=== PATIENT | male | born 1960 | race Caucasian/White ===

== ENCOUNTER → 2023-02-04 18:17 | Outpatient (CLI) | payer OTHER, SELFPAY ==
--- NOTE | 2023-02-04 | DI.MRI.S_ITS ---
PROCEDURE: MR HAND RT WO CON INDICATIONS: Crushing injury of right hand, initial encounter TECHNIQUE: Noncontrast coronal T1 spin echo and T2 fast spin echo with fat saturation, axial proton density fast spin echo and T2 fast spin echo with fat saturation, sagittal T1 spin echo and STIR through the hand and fingers. COMPARISON: [facility], CR, XR FINGER(S) RIGHT, 08/11/2018, 14:05. FINDINGS: Image quality: Excellent. Bones: Is of osseous edema are seen throughout the hamate and the trapezium as well as within the 1st metacarpal base and shaft, 1st proximal and distal phalanges and the 4th proximal phalanx. A clearly defined fracture line is not definitely seen. Moderate to severe degenerative changes are seen at the 1st carpometacarpal joint and triscaphe joint. Additional degenerative changes are seen the radiocarpal and 1st metacarpophalangeal joints and throughout the interphalangeal joints of the fingers. No intra-osseous lesions. Soft tissues: Fluid is seen tracking along the flexor tendons proximal and distal to the carpal tunnel, consistent with tenosynovitis. There is also fluid along the distal flexor carpi radialis tendon. The visualized extensor tendons appear to be intact. Visualized muscles demonstrate normal bulk and internal signal. No intramuscular masses identified. IMPRESSION: 1. Multifocal osseous contusions in the hand and wrist, most prominent involving the hamate and trapezium. More mild areas of osseous edema are seen at the 1st metacarpal, 1st proximal and distal phalanges, and 4th proximal phalanx. No well-defined fracture line is seen on MRI. 2. Mild diffuse flexor tenosynovitis in the hand and wrist. No full-thickness tendon tear is seen. 3. Osteoarthrosis, most notably at the 1st carpometacarpal joint. Approved by: Lakhwinder Kay M.D. on 02/05/2023 at 10:12
== END ==
PROVIDERS: Family Provider Family Medicine; PCP Family Medicine; Referring Provider Orthopaedic Surgery; Visit Provider Orthopaedic Surgery
DX: S67.21XA Crushing injury of right hand, initial encounter (principal); S67.190A Crushing injury of right index finger, initial encounter; M18.11 Unilateral primary osteoarthritis of first carpometacarpal joint, right hand; M65.841 Other synovitis and tenosynovitis, right hand
CPT/HCPCS: 73218